=== PATIENT | female | born 2000 | race Caucasian/White ===

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

== ENCOUNTER 2022-02-08 20:58 | Outpatient (CLI) | payer MEDICAID | END 2022-02-09 06:15 | disposition home or self-care (01) | LOC: SLEEP 20:58 | PROVIDERS: ATTEND Nurse Practitioner | DX: G47.33 Obstructive sleep apnea (adult) (pediatric) (principal) | CPT/HCPCS: 95810 ==